=== PATIENT | male | born 1955 | race Caucasian/White ===

== ENCOUNTER 2017-04-24 19:19 | Emergency (ER) | payer SELFPAY ==
[~2017-04-24] VITALS: Ht 182.9 cm; Wt 79.4 kg
== END 2017-04-24 22:16 | disposition home or self-care (01) ==
LOC: ED 19:19
DX: K52.9 Noninfective gastroenteritis and colitis, unspecified (principal); E86.0 Dehydration; R55 Syncope and collapse
CPT/HCPCS: 80053; 81001; 85025; 96361; 96374; 99283; J2405; J7030